=== PATIENT | male | born 1965 | race Caucasian/White ===

== ENCOUNTER 2020-02-29 15:07 | Outpatient (REF) | payer MEDICAID, SELFPAY | END 2020-02-29 15:08 | disposition home or self-care (01) | LOC: HO.LAB 15:07 | PROVIDERS: Visit Provider Internal Medicine | DX: Z20.822 Contact with and (suspected) exposure to COVID-19 (principal) | CPT/HCPCS: 36415; C9803; U0003 ==

== ENCOUNTER 2020-03-16 10:33 | Outpatient (REF) | payer MEDICAID, SELFPAY | END 2020-03-16 10:34 | disposition home or self-care (01) | LOC: HO.LAB 10:33 | PROVIDERS: Visit Provider Internal Medicine | DX: Z20.822 Contact with and (suspected) exposure to COVID-19 (principal) | CPT/HCPCS: 36415; C9803; U0003 ==

== ENCOUNTER 2020-05-31 14:20 | Outpatient (REF) | payer MEDICAID, SELFPAY | END 2020-05-31 14:21 | disposition home or self-care (01) | LOC: HO.LAB 14:20 | PROVIDERS: Visit Provider Internal Medicine | DX: Z20.822 Contact with and (suspected) exposure to COVID-19 (principal) | CPT/HCPCS: C9803; U0003; U0005 ==

== ENCOUNTER 2020-05-31 14:34 | Emergency (ER) | payer MEDICAID, SELFPAY ==
[2020-05-31 14:54] VITALS: BP 143/74; PULSE 56; RESP 18; TEMP 36.8; O2SAT 96; BMI 25.7
--- NOTE | 2020-05-31 15:54 | ED.EYEPROB ---
HPI - Eye Problem General Chief complaint: Eye Problems Stated complaint: pink eye Time Seen by Provider: 05/31/20 15:54 Source: patient Mode of arrival: ambulatory Limitations: no limitations History of Present Illness HPI Narrative: States woke up with red spot in the inner aspect of the left eye. No pain, discharge, swelling, rash. No vision changes. No headache or recent injury. No sensation of foreign body per MD chief complaint: eye redness Onset description: gradual (Woke up with it) Location: left eye Place: home Mechanism: none Associated symptoms: none Treatments Prior to Arrival: none Related Data Allergies Allergy/AdvReac Type Severity Reaction Status Date / Time No Known Allergies Allergy Unknown Verified 05/31/20 14:59 [No Known Allergies*] Review of Systems Review of Systems: Constitutional: No Weight loss, No Fever, No Chills, No Night Sweats, No Fatigue, No Malaise ENT/Mouth: No Hearing loss, No Ear Pain, No Nasal Congestion, No Sinus Pain, No Hoarseness, No sore throat, No Rhinorrhea, No Swallowing Difficulty Eyes: No Eye Pain, No Swelling, + Redness, No Foreign Body, No Discharge, No Vision Changes Cardiovascular: No Chest Pain, No SOB, No Dyspnea on Exertion, No Orthopnea, No Edema, No Palpitations Respiratory: No Cough, No Sputum, No Wheezing, No Smoke Exposure, No Dyspnea Gastrointestinal: No Nausea, No Vomiting, No Diarrhea, No Constipation, No abdominal Pain, No Hematochezia, No Melena Genitourinary: No Dysuria, No Urinary Frequency, No Hematuria, No Urinary Incontinence, No Urgency, No Flank Pain, No Urinary Flow Changes, No Hesitancy Musculoskeletal: No joint pain, No Myalgias, No Joint Swelling Skin: No Skin Lesions, No rash Neuro: No Weakness, No Numbness, No Paresthesias, No Loss of Consciousness, No Dizziness, No Headache Psych: No Social Issues Heme/Lymph: No Bruising, No Bleeding,No Lymphadenopathy Endocrine: No Polyuria, No Polydipsia, No Temperature Intolerance Yes all other systems are reviewed and are negative FOR[facility]LY [facility] Social History Social History Advance Directives: No Advance Directives Information Provided: Yes Physical Exam Vital Signs: Vital Signs: Last Vital Signs Temp 98.2 F 05/31/20 14:54 Pulse 56 05/31/20 14:54 Resp 18 05/31/20 14:54 BP 143/74 H 05/31/20 14:54 Pulse Ox 96 05/31/20 14:54 Body Mass Index 25.7 Reviewed Const: General: cooperative, healthy appearing, comfortable, no acute distress, well developed, alert and awake HENMT: Head: Yes normal to inspection Ears: hearing grossly normal bilaterally Eyes: General: appearance normal, both eyes and all related structures Visual Polanco: normal visual polanco by confrontation Eyelids: Yes eyelids normal Conjunctivae: conjunctival abnormal left subconjunctival hemorrhage (Very small area with clear small conjunctival hemorrhage with clear demarcation just proximal to the start of the cornea. No signs of trauma keep her reflux is normal lids.); Negative for conjunctival icterus, without chemosis, without injection, without discharge, without pallor and without pterygia Sclerae: sclerae normal Corneas: corneas normal Neck: Neck: Yes normal visual inspection Chest: Chest palpation & inspection: normal inspection of the chest and normal palpation of entire chest wall Resp: Effort & Inspection: normal respiratory effort, no audible wheezes, no cough and no respiratory distress Cardio: Jugular venous distension: no JVD Palpation: normal PMI Rate: regular rate Heart sounds: S1 normal heart sound present and S2 normal heart sound present Skin: General skin exam: no rashes or lesions noted, elasticity normal and turgor normal Wounds: no wounds Nails: normal Psych: Appearance: grossly normal and well kempt Discharge Plan Discharge Clinical Impression: Subconjunctival hemorrhage Patient Disposition: Home, Self-Care Instructions: Subconjunctival Hemorrhage (ED) Additional Instructions: The redness on the inner aspect of your eye is from very small blood vessel that ruptured. This appears scared but is very harmless. Your body will absorb the blood slowly over the next 1-2 weeks. Usually this occurs with you strain or cough or sneeze or with injury. There is no signs of injury, infection. This does not require any medications to be installed in the eye, whenever you do perform eye care make sure her hands are clean. Return if any pain, vision changes, headache, bleeding, fever, neck pain, abdominal pain, chest pain shortness of breath Otherwise follow up her primary care doctor Thank you Referrals: ED Physician,Generic [Emergency Provider] - 2 weeks
== END 2020-05-31 16:04 | disposition home or self-care (01) ==
PROVIDERS: Emergency Provider Emergency Medicine Emergency Medical Services
DX: H11.32 Conjunctival hemorrhage, left eye (principal); H10.022 Other mucopurulent conjunctivitis, left eye
CPT/HCPCS: 99283

== ENCOUNTER 2022-04-26 13:10 | Emergency (ER) | payer MEDICAID, SELFPAY ==
--- NOTE | ~2022-04-26 | CT_ITS ---
EXAMINATION: CT CHEST WITHOUT CONTRAST CLINICAL INFORMATION: Question dense consolidation, right flank pain COMPARISON: 517 2 2006, CT 04/26/2022 TECHNIQUE: Multidetector volumetric CT imaging of the chest was done. Axial MIP volume rendering provided. Sagittal and coronal reformatted images were obtained. This CT examination was performed using dose optimization techniques as appropriate, variously including the following: *Automated exposure control *Adjustment of mA and/or kV according to patient size (this includes techniques or standardized protocols for targeted exams where dose is matched to indication/reason for exam; i.e. extremities or head) *Use of iterative reconstruction technique DLP: 253 mGy-cm FINDINGS: The thoracic inlet demonstrating some mild nodes. Not pathologically enlarged. Mediastinum shows highly prominent adenopathy as well. Largest node appears precarinal. 1.2 cm short axis. This is a noncontrast study. I cannot exclude some hilar adenopathy. Imaging lung polanco. Right lung; Once again density seen at the left base. There is a differential here. This could be tumor or focal infiltrate.. Measures 2.1 x 1.3 cm Some probable pleural parenchymal chronic change in the upper lung zone posterior. 2 mm nodule on image 132 of series 5 4 mm nodule on image 197. This could be a bronchial plug. Small bronchial plug likely present on image 198 4 mm nodule on image 197. 3 mm nodule anterior on image 213 3 mm nodule on image 259 and a 6 mm nodule on image 256 Other minimal micronodules are noted. 7 mm nodule on image 317 3 mm nodule medial image 417 Left lung; Probable apical scarring. Probable small granuloma on image 113 7 mm pleural-based nodule on image 123 adjacent to the pleura. 3 mm nodule on image 218 The axillary regions are felt to be unremarkable. Partially visualized upper abdominal structures show probable cystic change associated with left kidney. Minimal coronary calcification. Review of the bone windows shows no suspicious finding. CT/CT chest wo IV con IMPRESSION: This exam is abnormal. Right basilar density is confirmed. There is a differential here. This may represent malignancy versus focal inflammatory change. Other nodules are noted throughout the lungs and again malignancy needs to be considered. There is also some mildly prominent central mediastinal and hilar adenopathy. Recommendation is PET/CT to further evaluate at this time. If PET/CT is not selected for recommendation is follow-up CT in 4-6 weeks after treatment for infiltrate for continued assessment .
--- NOTE | ~2022-04-26 | CT_ITS ---
EXAMINATION: CT ABDOMEN AND PELVIS WITHOUT CONTRAST CLINICAL INFORMATION: Right flank pain. History of renal stones COMPARISON: 04/29/2018 TECHNIQUE: Multidetector volumetric imaging was performed from the superior aspect of the liver through the pubic symphysis. Sagittal and coronal reformatted images were obtained on the technologist's workstation. This CT examination was performed using dose optimization techniques as appropriate, variously including the following: *Automated exposure control *Adjustment of mA and/or kV according to patient size (this includes techniques or standardized protocols for targeted exams where dose is matched to indication/reason for exam; i.e. extremities or head) *Use of iterative reconstruction technique DLP: 416 mGy-cm FINDINGS: Examination limited due to motion and noncontrast technique. LUNG BASES: There is dense consolidation abating the posterior pleura on the right measured 2.3 x 1.7 cm consider possibility of pneumonia versus small mass. Correlate clinically. LIVER, GALLBLADDER, AND BILIARY TREE: The liver is normal in size, shape, and attenuation. No focal hepatic lesion or biliary ductal dilatation is present. The gallbladder is unremarkable with no evidence of radiopaque gallstones, gallbladder wall thickening, or obvious pericholecystic inflammatory changes. PANCREAS: Unremarkable. SPLEEN: Unremarkable. ADRENAL GLANDS: Unremarkable. KIDNEYS AND URETERS: Right kidney is unremarkable. Left kidney revealed 3.4 x 3.4 cm cyst in the lower pole growing since previous study. BLADDER: Unremarkable. GASTROINTESTINAL TRACT: The small and large bowel are unremarkable. The appendix is unremarkable. ABDOMINAL WALL: No significant hernia is appreciated. LYMPH NODES: Normal. VASCULAR: Unremarkable. PELVIC VISCERA: There is questionable hydrocele visualized in the partially included scrotum scrotum. OSSEOUS STRUCTURES: Unremarkable. CT/CT abdomen pelvis wo IV con IMPRESSION: 1. Limited study due to noncontrast technique and motion. 2. Left renal cyst. 3. Right lung base dense parenchymal consolidation, correlate clinically. 4. Questionable hydrocele. Fleischner guidelines were followed.
[2022-04-26 13:25] VITALS: BP 145/77; PULSE 54; RESP 16; TEMP 36.4; O2SAT 98; BMI 24.1
--- NOTE | 2022-04-26 13:25 | ED.GENADULT ---
HPI - General Adult General Chief complaint: Urogenital-Male <LUCY Calzada - Last Filed: 04/26/22 13:26> Stated complaint: R flank pain <LUCY Calzada - Last Filed: 04/26/22 13:26> Time Seen by Provider: 04/26/22 14:19 <LUCY Calzada - Last Filed: 04/26/22 13:26> Source: patient <Kenneth Mcneil MD - Last Filed: 04/26/22 16:09> Mode of arrival: ambulatory <Kenneth Mcneil MD - Last Filed: 04/26/22 16:09> Limitations: no limitations <Kenneth Mcneil MD - Last Filed: 04/26/22 16:09> History of Present Illness HPI narrative: 57-year-old male came in for evaluation of right flank pain. Patient's symptoms started 2-3 weeks ago as right flank pain which is intermittent, sharp 5/10, no radiation, no other associated symptoms, pain now since yesterday's becoming more or less constant, no nausea, no vomiting, no fever, no dysuria, no frequency urination, no hematuria. Patient had similar presentation in the past when he had a kidney stones. Declined any trauma or injury to the abdomen or flank area. <Kenneth Mcneil MD - Last Filed: 04/26/22 16:09> Related Data Allergies/adverse reactions: Allergies Allergy/AdvReac Type Severity Reaction Status Date / Time No Known Allergies Allergy Unknown Verified 04/26/22 13:25 [No Known Allergies*] <LUCY Calzada - Last Filed: 04/26/22 13:26> Review of Systems Review of Systems: All other systems are reviewed and are negative Constitutional: Reports as per HPI and Reports no additional constitutional complaints Eyes: Reports as per HPI and Reports no additional eye complaints Reports system reviewed and no additional complaints, except as documented Cardiovascular: Reports as per HPI and Reports no additional cardiovascular complaints Respiratory: Reports as per HPI and Reports no additional respiratory complaints Gastrointestinal: Reports as per HPI and Reports no additional gastrointestinal complaints Genitourinary: Reports no additional female genitourinary complaints Musculoskeletal: Reports no additional musculoskeletal complaints Skin/Breast: Reports system reviewed and no additional complaints, except as docu Psychiatric: Reports no additional psychiatric complaints Endocrine: Reports no additional endocrine complaints Hematologic/Lymphatic: Reports no additional hematologic/lymphatic complaints Allergic/Immunologic: Reports no additional allergic/immunologic complaints Reports system reviewed and no additional complaints, except as documented and Reports Abnormal speech present <Kenneth Mcneil MD - Last Filed: 04/26/22 16:09> FORMERLY [facility] Social History Social History: Social History Alcohol intake: never Smoked in Last 30 Days: No Use of substances other than those prescribed or required for medical reasons: No Advance Directives: No Advance Directives Information Provided: Yes <LUCY Calzada - Last Filed: 04/26/22 13:26> Physical Exam ED Vital Signs: Vital Signs - 24 hr 04/26/22 13:25 04/26/22 15:18 Temperature 97.5 F 97.9 F Pulse Rate 54 53 Respiratory Rate 16 18 Blood Pressure 145/77 H 117/69 Pulse Oximetry 98 99 Oxygen Delivery Method Room Air Room Air BMI result Body Mass Index 24.1 <LUCY Calzada - Last Filed: 04/26/22 13:26> Vital Signs - 24 hr 04/26/22 13:25 04/26/22 15:18 Temperature 97.5 F 97.9 F Pulse Rate 54 53 Respiratory Rate 16 18 Blood Pressure 145/77 H 117/69 Pulse Oximetry 98 99 Oxygen Delivery Method Room Air Room Air BMI result Body Mass Index 24.1 Vital signs have been reviewed as appeared to be correct. Blood pressure normal. Heart rate normal. Respiration rate normal. Temperature normal. Oxygen saturation normal. <Kenneth Mcneil MD - Last Filed: 04/26/22 16:09> Vital Signs - 24 hr 04/26/22 13:25 04/26/22 15:18 Temperature 97.5 F 97.9 F Pulse Rate 54 53 Respiratory Rate 16 18 Blood Pressure 145/77 H 117/69 Pulse Oximetry 98 99 Oxygen Delivery Method Room Air Room Air BMI result Body Mass Index 24.1 <Emelina Gama MD - Last Filed: 04/26/22 18:52> Appearance: Alert. Oriented X3. No acute distress. Head: Normal external exam. Normocephalic. Atraumatic. No Spaulding signs noted. No raccoon eyes noted Eyes: PERRLA. EOMI. Conjunctiva and sclera normal. Eyelids normal. ENT: TM's Normal. Pharynx normal. Uvula midline. Moist mucous membranes. No trismus noted. No drooling noted. No muffled voice noted. Neck: Normal inspection. Neck supple. FROM. No adenopathy. Thyroid Normal. No meningeal signs. No neck mass noted. CVS: Normal heart rate and rhythm. Heart sound normal. No murmurs noted. Pulses normal throughout. Respiratory: No respiratory distress. Painless inspiration. Breath sounds normal. No wheezes/rales/rhonchi noted. Chest nontender. No accessory muscle usage noted or decreased air movement noted. Abdomen: Soft and nontender. Bowel sounds normal in all 4 quadrants. No distention noted. No organomegaly noted. No visible injury noted. Back: No CVA tenderness. Full range of motion noted. Skin: Skin warm and dry. Normal skin color. Normal skin turgor. No rashes/lesions/lacerations noted. Extremities: No lower extremity edema. Extremities exhibit normal range of motion. Extremities nontender. Neuro: Oriented X 3. Cranial nerve exam: II-XII are grossly intact No motor deficit. No sensory deficit. Reflexes normal. <Kenneth Mcneil MD - Last Filed: 04/26/22 16:09> Course Course Course Narrative: RME performed by Josephine Mckeon PA-C. Patient is a 57 year old male presenting to the emergency department with a history of kidney stone complaining of right flank pain. Labs, UA, CT ordered. Patient placed back in the waiting room pending room availability and results. <LUCY Calzada - Last Filed: 04/26/22 13:26> Reevaluation(s) Reevaluation #1: Sign-out to Dr. Gama to check CT result and dispo accordingly. <Kenneth Mcneil MD - Last Filed: 04/26/22 16:09> Time: 16:09 <Kenneth Mcneil MD - Last Filed: 04/26/22 16:09> Reevaluation #2: This patient was signed out to me for possible rule out renal colic, on the CT of abdomen pelvis there was a noted right lower lobe consolidation which I further evaluated with a CT of the chest and evidence to suggest possible lung mass and there is noted highly are adenopathy. I will discussed with the patient at bedside and he will be discharged home with analgesic regimen and strict instructions to follow-up with his primary care provider and also will provide him with a referral to pulmonology. <Emelina Gama MD - Last Filed: 04/26/22 18:52> Time: 18:43 <Emelina Gama MD - Last Filed: 04/26/22 18:52> Medical Decision Making Differential Diagnosis Differential Diagnoses: The differential diagnosis associated with the presentation includes (Flank pain, kidney infection, kidney stone, gallbladder disease, appendicitis.) <Kenneth Mcneil MD - Last Filed: 04/26/22 16:09> Lab Data MDM Lab Attestation statement: I reviewed the patient's lab results. <Kenneth Mcneil MD - Last Filed: 04/26/22 16:09> Result Diagrams: 04/26/22 14:26 04/26/22 14:26 <LUCY Calzada - Last Filed: 04/26/22 13:26> Labs: Lab Results 04/26/22 04/26/22 04/26/22 Range/Units 14:26 14:26 14:26 WBC 5.2 (4.8-10.8) X10*3/uL RBC 4.52 L (4.60-5.80) X10*6/uL Hgb 13.8 L (14.0-18.0) g/dl Hct 39.3 L (42.0-52.0) % MCV 86.9 (80.0-98.0) fL MCH 30.5 (27.0-33.0) pg MCHC 35.1 (31.0-36.0) g/dl RDW 11.8 (11.0-16.0) % Plt Count 168 (160-400) X10*3/uL MPV 9.9 (9.4-12.4) fL Immature Gran % (Auto) 0.2 (0.0-0.4) % Neut % (Auto) 65.0 (45-73) % Lymph % (Auto) 18.0 L (20-40) % [place] % (Auto) 13.3 H (2-11) % Eos % (Auto) 3.1 (0-4) % Baso % (Auto) 0.4 (0-2) % Lymph # (Auto) 0.9 L (1.2-4.9) X10*3/uL [place] # (Auto) 0.7 (0.1-1.2) X10*3/uL Eos # (Auto) 0.2 (0.0-0.4) X10*3/uL Baso # (Auto) 0.0 (0.0-0.2) X10*3/uL Abs Immat Gran (auto) 0.01 (0.00-0.03) X10*3/uL Absolute Neuts (auto) 3.4 (2.0-8.3) x10*3/uL Absolute Nucleated RBC 0.000 (0.0-0.012) X10*3/uL Nucleated RBC % (auto) 0.0 (0.0-0.2) /100WBC Sodium 143 (135-145) mmol/L Potassium 4.0 (3.3-5.1) mmol/L Chloride 109 H (96-108) mmol/L Carbon Dioxide 27 (22-29) mmol/L Anion Gap 11 L (12-20) BUN 16 (9-16) mg/dL Creatinine 0.83 (0.5-1.4) mg/dL Estim Creat Clear Calc 85.4 Estimated GFR > 60 Random Glucose 92 (60-115) mg/dL Calcium 8.7 (8.4-10.2) mg/dL Magnesium 1.8 (1.6-2.6) mg/dL Total Bilirubin 0.7 (0.0-1.0) mg/dL AST 20 (5-37) U/L ALT 21 (0-40) U/L Alkaline Phosphatase 71 (39-117) U/L Total Protein 6.7 (6.5-8.0) g/dL Albumin 3.7 (3.5-5.0) g/dL Urine Color Yellow Urine Appearance Clear Urine pH 6.5 (5.0-9.0) Ur Specific [place] 1.025 (1.005-1.025) Urine Protein Trace (Neg-Trace) mg/dL Urine Glucose (UA) Negative (Negative) mg/dL Urine Ketones Trace (Negative) mg/dL Urine Blood Negative (Negative) Urine Nitrite Negative (Negative) Ur Leukocyte Esterase Negative (Negative) <LUCY Calzada - Last Filed: 04/26/22 13:26> Lab Results 04/26/22 04/26/22 04/26/22 Range/Units 14:26 14:26 14:26 WBC 5.2 (4.8-10.8) X10*3/uL RBC 4.52 L (4.60-5.80) X10*6/uL Hgb 13.8 L (14.0-18.0) g/dl Hct 39.3 L (42.0-52.0) % MCV 86.9 (80.0-98.0) fL MCH 30.5 (27.0-33.0) pg MCHC 35.1 (31.0-36.0) g/dl RDW 11.8 (11.0-16.0) % Plt Count 168 (160-400) X10*3/uL MPV 9.9 (9.4-12.4) fL Immature Gran % (Auto) 0.2 (0.0-0.4) % Neut % (Auto) 65.0 (45-73) % Lymph % (Auto) 18.0 L (20-40) % [place] % (Auto) 13.3 H (2-11) % Eos % (Auto) 3.1 (0-4) % Baso % (Auto) 0.4 (0-2) % Lymph # (Auto) 0.9 L (1.2-4.9) X10*3/uL [place] # (Auto) 0.7 (0.1-1.2) X10*3/uL Eos # (Auto) 0.2 (0.0-0.4) X10*3/uL Baso # (Auto) 0.0 (0.0-0.2) X10*3/uL Abs Immat Gran (auto) 0.01 (0.00-0.03) X10*3/uL Absolute Neuts (auto) 3.4 (2.0-8.3) x10*3/uL Absolute Nucleated RBC 0.000 (0.0-0.012) X10*3/uL Nucleated RBC % (auto) 0.0 (0.0-0.2) /100WBC Sodium 143 (135-145) mmol/L Potassium 4.0 (3.3-5.1) mmol/L Chloride 109 H (96-108) mmol/L Carbon Dioxide 27 (22-29) mmol/L Anion Gap 11 L (12-20) BUN 16 (9-16) mg/dL Creatinine 0.83 (0.5-1.4) mg/dL Estim Creat Clear Calc 85.4 Estimated GFR > 60 Random Glucose 92 (60-115) mg/dL Calcium 8.7 (8.4-10.2) mg/dL Magnesium 1.8 (1.6-2.6) mg/dL Total Bilirubin 0.7 (0.0-1.0) mg/dL AST 20 (5-37) U/L ALT 21 (0-40) U/L Alkaline Phosphatase 71 (39-117) U/L Total Protein 6.7 (6.5-8.0) g/dL Albumin 3.7 (3.5-5.0) g/dL Urine Color Yellow Urine Appearance Clear Urine pH 6.5 (5.0-9.0) Ur Specific [place] 1.025 (1.005-1.025) Urine Protein Trace (Neg-Trace) mg/dL Urine Glucose (UA) Negative (Negative) mg/dL Urine Ketones Trace (Negative) mg/dL Urine Blood Negative (Negative) Urine Nitrite Negative (Negative) Ur Leukocyte Esterase Negative (Negative) <Kenneth Mcneil MD - Last Filed: 04/26/22 16:09> Lab Results 04/26/22 04/26/22 04/26/22 Range/Units 14:26 14:26 14:26 WBC 5.2 (4.8-10.8) X10*3/uL RBC 4.52 L (4.60-5.80) X10*6/uL Hgb 13.8 L (14.0-18.0) g/dl Hct 39.3 L (42.0-52.0) % MCV 86.9 (80.0-98.0) fL MCH 30.5 (27.0-33.0) pg MCHC 35.1 (31.0-36.0) g/dl RDW 11.8 (11.0-16.0) % Plt Count 168 (160-400) X10*3/uL MPV 9.9 (9.4-12.4) fL Immature Gran % (Auto) 0.2 (0.0-0.4) % Neut % (Auto) 65.0 (45-73) % Lymph % (Auto) 18.0 L (20-40) % [place] % (Auto) 13.3 H (2-11) % Eos % (Auto) 3.1 (0-4) % Baso % (Auto) 0.4 (0-2) % Lymph # (Auto) 0.9 L (1.2-4.9) X10*3/uL [place] # (Auto) 0.7 (0.1-1.2) X10*3/uL Eos # (Auto) 0.2 (0.0-0.4) X10*3/uL Baso # (Auto) 0.0 (0.0-0.2) X10*3/uL Abs Immat Gran (auto) 0.01 (0.00-0.03) X10*3/uL Absolute Neuts (auto) 3.4 (2.0-8.3) x10*3/uL Absolute Nucleated RBC 0.000 (0.0-0.012) X10*3/uL Nucleated RBC % (auto) 0.0 (0.0-0.2) /100WBC Sodium 143 (135-145) mmol/L Potassium 4.0 (3.3-5.1) mmol/L Chloride 109 H (96-108) mmol/L Carbon Dioxide 27 (22-29) mmol/L Anion Gap 11 L (12-20) BUN 16 (9-16) mg/dL Creatinine 0.83 (0.5-1.4) mg/dL Estim Creat Clear Calc 85.4 Estimated GFR > 60 Random Glucose 92 (60-115) mg/dL Calcium 8.7 (8.4-10.2) mg/dL Magnesium 1.8 (1.6-2.6) mg/dL Total Bilirubin 0.7 (0.0-1.0) mg/dL AST 20 (5-37) U/L ALT 21 (0-40) U/L Alkaline Phosphatase 71 (39-117) U/L Total Protein 6.7 (6.5-8.0) g/dL Albumin 3.7 (3.5-5.0) g/dL Urine Color Yellow Urine Appearance Clear Urine pH 6.5 (5.0-9.0) Ur Specific [place] 1.025 (1.005-1.025) Urine Protein Trace (Neg-Trace) mg/dL Urine Glucose (UA) Negative (Negative) mg/dL Urine Ketones Trace (Negative) mg/dL Urine Blood Negative (Negative) Urine Nitrite Negative (Negative) Ur Leukocyte Esterase Negative (Negative) <Emelina Gama MD - Last Filed: 04/26/22 18:52> Independent Interpretation I performed an independent interpretation of an: CT Scan <Kenneth Mcneil MD - Last Filed: 04/26/22 16:09> Discharge Plan Discharge Clinical Impression: Right lower lobe lung mass <LUCY Calzada - Last Filed: 04/26/22 13:26> Patient Disposition: Home, Self-Care <LUCY Calzada - Last Filed: 04/26/22 13:26> Instructions: Abdominal Pain (ED) <LUCY Calzada - Last Filed: 04/26/22 13:26> Additional Instructions: 1. You have a lung mass at the right lower lobe and the need to follow up with the referrals that are provided to you below. 2. Tylenol 1000 mg, orally, every 6 hours as needed for pain control. Do not exceed 4000 mg within 24 hours. 3. Ibuprofen 4 mg, orally with milk or food, every 6 hours as needed for pain control. 4. Follow-up with primary care provider in the next 1-2 days. Return to the ER for any worsening symptoms. <LUCY Calzada - Last Filed: 04/26/22 13:26> Referrals: [facility] [Primary Care Provider] - Margarito Montero MD [Physician] - (RLL ?lung mass with hilar adenopathy) <LUCY Calzada - Last Filed: 04/26/22 13:26>
[2022-04-26 14:32] LABS: MANUAL DIFF FLAG NO
[2022-04-26 14:40] LABS: Appearance Urine Clear; Color Urine Yellow; Glucose Urine UA Negative (Negative); Leukocyte Esterase Urine Negative (Negative); Nitrite Urine Negative (Negative); PH 6.5 (5.0-9.0); Specific Gravity - Urine 1.025 (1.005-1.025); Urine Blood Negative (Negative); Urine Ketones Trace mg/dL (Negative); Urine Protein Trace mg/dL (Neg-Trace)
[2022-04-26 14:43] LABS: Basophils Percent Auto 0.4 % (0-2); Eosinophils Absolute Auto 0.2 X10*3/uL (0.0-0.4); Eosinophils Percent Auto 3.1 % (0-4); Hematocrit 39.3 % (42.0-52.0); Hemoglobin 13.8 g/dl (14.0-18.0); Imm Gran Abs Auto 0.01 X10*3/uL (0.00-0.03); Imm Gran Pct Auto 0.2 % (0.0-0.4); Lymphocytes Absolute Auto 0.9 X10*3/uL (1.2-4.9); Mean Corpuscular HGB Conc 35.1 g/dl (31.0-36.0); Mean Corpuscular Hemoglobin 30.5 pg (27.0-33.0); Mean Corpuscular Volume 86.9 fL (80.0-98.0); Mean Platelet Volume 9.9 fL (9.4-12.4); Monocytes Absolute Auto 0.7 X10*3/uL (0.1-1.2); Monocytes Percent Auto 13.3 % (2-11); Neutrophils Absolute Auto 3.4 x10*3/uL (2.0-8.3); Platelet Count 168 X10*3/uL (160-400); Red Blood Count 4.52 X10*6/uL (4.60-5.80); Red Cell Distribution Width 11.8 % (11.0-16.0); White Blood Count 5.2 X10*3/uL (4.8-10.8)
[2022-04-26 14:50] LABS: Alanine Aminotransferase 21 U/L (0-40); Albumin Level 3.7 g/dL (3.5-5.0); Alkaline Phosphatase 71 U/L (39-117); Anion Gap 11 (12-20); Aspartate Amino Transferase 20 U/L (5-37); Bilirubin Total 0.7 mg/dL (0.0-1.0); Blood Urea Nitrogen 16 mg/dL (9-16); Calcium 8.7 mg/dL (8.4-10.2); Carbon Dioxide 27 mmol/L (22-29); Chloride 109 mmol/L (96-108); Creatinine Clr Calc Pharmacy 85.4; Estimated Glomerular Filt Rate > 60; Glucose Random 92 mg/dL (60-115); Magnesium 1.8 mg/dL (1.6-2.6); Sodium 143 mmol/L (135-145); Total Protein 6.7 g/dL (6.5-8.0)
[2022-04-26 15:18] VITALS: BP 117/69; PULSE 53; RESP 18; TEMP 36.6; O2SAT 99
[2022-04-26] MEDS: oxyCODONE HCl Immed Release 5 MG TABLET PO (19:36)
== END 2022-04-26 19:41 | disposition home or self-care (01) ==
PROVIDERS: Physician Assistant Medical; Emergency Provider Student in an Organized Health Care Education/Training Program
DX: R91.8 Other nonspecific abnormal finding of lung field (principal); R10.9 Unspecified abdominal pain; N28.1 Cyst of kidney, acquired
CPT/HCPCS: 36415; 71250; 74176; 80053; 81003; 83735; 85025; 99284

== ENCOUNTER 2022-05-05 09:03 | Outpatient (REF) | payer MEDICAID, SELFPAY ==
[2022-05-05 10:02] LABS: MANUAL DIFF FLAG NO
[2022-05-05 10:36] LABS: Basophils Percent Auto 0.6 % (0-2); Eosinophils Absolute Auto 0.2 X10*3/uL (0.0-0.4); Hematocrit 41.4 % (42.0-52.0); Hemoglobin 14.4 g/dl (14.0-18.0); Imm Gran Abs Auto 0.01 X10*3/uL (0.00-0.03); Imm Gran Pct Auto 0.2 % (0.0-0.4); Lymphocytes Percent Auto 21.4 % (20-40); Mean Corpuscular HGB Conc 34.8 g/dl (31.0-36.0); Mean Corpuscular Hemoglobin 30.4 pg (27.0-33.0); Mean Corpuscular Volume 87.3 fL (80.0-98.0); Mean Platelet Volume 10.4 fL (9.4-12.4); Monocytes Absolute Auto 0.4 X10*3/uL (0.1-1.2); Monocytes Percent Auto 8.4 % (2-11); Neutrophils Percent Auto 64.4 % (45-73); Platelet Count 201 X10*3/uL (160-400); Red Blood Count 4.74 X10*6/uL (4.60-5.80); Red Cell Distribution Width 11.7 % (11.0-16.0); White Blood Count 4.6 X10*3/uL (4.8-10.8)
[2022-05-05 10:56] LABS: D Dimer High Sensitivity 197 NG/ML
[2022-05-05 11:34] LABS: Anion Gap 11 (12-20); Blood Urea Nitrogen 19 mg/dL (9-16); Calcium 9.3 mg/dL (8.4-10.2); Carbon Dioxide 28 mmol/L (22-29); Chloride 108 mmol/L (96-108); Estimated Glomerular Filt Rate > 60; Glucose Random 113 mg/dL (60-115); Sodium 143 mmol/L (135-145)
[2022-05-05 11:40] LABS: Erythrocyte Sedimentation Rate 10 MM/HR (0-15)
[2022-05-10 05:20] LABS: Angiotensin Converting Enzyme 54 U/L (9-67)
[2022-05-11 10:04] LABS: Anti Nuclear Antibody Screen NEGATIVE (NEGATIVE)
== END 2022-05-05 09:04 | disposition home or self-care (01) ==
LOC: HO.LAB 09:03
PROVIDERS: Visit Provider Hospitalist
DX: R91.8 Other nonspecific abnormal finding of lung field (principal); R07.81 Pleurodynia
CPT/HCPCS: 36415; 80048; 82164; 85025; 85379; 85652; 86038; 86039; 99202

== ENCOUNTER → 2022-06-30 14:21 | Outpatient (BNVA) | payer MEDICAID, SELFPAY | PROVIDERS: PCP Family Medicine; Visit Provider Hospitalist | DX: R91.8 Other nonspecific abnormal finding of lung field (principal); R07.81 Pleurodynia | CPT/HCPCS: 99212 ==

== ENCOUNTER 2022-12-02 12:02 | Outpatient (REF) | payer MEDICAID, SELFPAY ==
--- NOTE | ~2022-12-02 | XR_ITS ---
EXAMINATION: XR KNEE, RIGHT CLINICAL INFORMATION: Chronic pain in the right knee COMPARISON: 04/13/2015 TECHNIQUE: Three views of the right knee. FINDINGS: There is significant and progressive narrowing of the medial compartment of right knee joint, more pronounced on weightbearing view, with varus deformity of the knee. There is minimal spurring seen marginally and there is patellar spurring also. There is no joint effusion, no erosions or fractures. XR/XR knee RT 3V IMPRESSION: Changes of osteoarthritis in the right knee joint in progress since previous study.
[2022-12-02 13:43] LABS: MANUAL DIFF FLAG NO
[2022-12-02 13:50] LABS: Basophils Percent Auto 0.7 % (0-2); Eosinophils Absolute Auto 0.2 X10*3/uL (0.0-0.4); Eosinophils Percent Auto 5.4 % (0-4); Hematocrit 40.1 % (42.0-52.0); Hemoglobin 14.2 g/dl (14.0-18.0); Imm Gran Abs Auto 0.02 X10*3/uL (0.00-0.03); Imm Gran Pct Auto 0.5 % (0.0-0.4); Lymphocytes Percent Auto 23.1 % (20-40); Mean Corpuscular HGB Conc 35.4 g/dl (31.0-36.0); Mean Corpuscular Hemoglobin 31.1 pg (27.0-33.0); Mean Corpuscular Volume 87.9 fL (80.0-98.0); Monocytes Absolute Auto 0.4 X10*3/uL (0.1-1.2); Neutrophils Absolute Auto 2.7 x10*3/uL (2.0-8.3); Neutrophils Percent Auto 61.3 % (45-73); Platelet Count 174 X10*3/uL (160-400); Red Blood Count 4.56 X10*6/uL (4.60-5.80); Red Cell Distribution Width 11.9 % (11.0-16.0); White Blood Count 4.4 X10*3/uL (4.8-10.8)
[2022-12-02 13:57] LABS: Estimated Average Glucose 103 mg/dL; Hemoglobin A1c % 5.2 % (<6.0)
[2022-12-02 14:13] LABS: Cholesterol 221 mg/dL (<200); HDL Cholesterol 41 mg/dL (>40); LDL Cholesterol Calculated 109 mg/dL (<100); Triglycerides 355 mg/dL (<150)
[2022-12-02 14:30] LABS: Alanine Aminotransferase 32 U/L (0-40); Alkaline Phosphatase 68 U/L (39-117); Anion Gap 14 (12-20); Aspartate Amino Transferase 25 U/L (5-37); Bilirubin Total 0.5 mg/dL (0.0-1.0); Blood Urea Nitrogen 18 mg/dL (9-16); Calcium 9.6 mg/dL (8.4-10.2); Carbon Dioxide 22 mmol/L (22-29); Chloride 109 mmol/L (96-108); Estimated Glomerular Filt Rate > 60; Ferritin 112 ng/mL (20-250); Glucose Random 117 mg/dL (60-115); Iron 79 mcg/dL (45-160); Percent Iron Saturation 33 % (15-50); Potassium 3.9 mmol/L (3.3-5.1); Sodium 141 mmol/L (135-145); TSH reflex Free T4 1.23 uIU/mL (0.32-4.0); Total Iron Binding Capacity 237 mcg/dL (228-428); Total Protein 7.5 g/dL (6.5-8.0); Unsaturated Iron Binding 158 ug/dL; Uric Acid 4.6 mg/dL (3.4-7.0)
[2022-12-02 14:38] LABS: Folate 15.8 ng/mL (> or = 4.0); Vitamin B12 1027 pg/mL (200-900)
[2022-12-02 16:56] LABS: CT PCR NOT DETECTED (Not Detect.); NG PCR NOT DETECTED (Not Detect.)
[2022-12-02 16:59] LABS: Reflex LDLD? No
[2022-12-03 07:56] LABS: Syphilis Screen Nonreactive (Nonreactive)
[2022-12-03 08:07] LABS: HBS Num1 0.04 mIU/mL (0-7.99); HBc Num1 0.19 S/CO (0.00-0.79); HBsAGNum1 0.34 S/CO (0.00-0.99); HIV AB/AG Nonreactive (Nonreactive); HIV Num 1 0.06 S/CO (0.00-0.99); Hepatitis B Core Antibody Nonreactive (Nonreactive); Hepatitis B Surface Antigen Negative (Negative); ~HepC Num1 0.08 S/CO (0.00-0.79); ~Hepatitis B Surface Antibody NONREACTIVE (Nonreactive); ~Hepatitis C Antibody Nonreactive (Nonreactive)
== END 2022-12-02 12:03 | disposition home or self-care (01) ==
LOC: HO.HHCL 12:02
PROVIDERS: Visit Provider Family Medicine
DX: M25.561 Pain in right knee (principal); M25.521 Pain in right elbow; G89.29 Other chronic pain; D64.9 Anemia, unspecified; Z13.1 Encounter for screening for diabetes mellitus; Z13.220 Encounter for screening for lipoid disorders; Z11.3 Encounter for screening for infections with a predominantly sexual mode of transmission
CPT/HCPCS: 0353U; 73562; 80053; 80061; 82607; 82728; 82746; 83036; 83540; 84443; 84550; 85025; 86704; 86706; 86780; 86803; 87340; 87389

== ENCOUNTER 2022-12-09 14:19 | Outpatient (AMB) | payer MEDICAID, SELFPAY ==
--- NOTE | 2022-12-09 14:27 | A.OFFVIS_ITS ---
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 Some pleuritic component. Also worsen with movement. He was evaluated in the ER. Denied any fevers or chills. Denies any productive cough. In view of his ongoing symptoms he did undergo a CT scan of the chest demonstrating a nodular area on the right lower lobe and also pulmonary nodule in the left upper lobe area. The right lower lobe nodular density greater than a cm in size and was peripheral based abutting the pleura. Indeed discontinue resulting some pleuritic discomfort. We did talk about differential including a small infectious process versus an inflammatory condition. Malignancy is also in the differential. Does not appear that he has any blood borne infections. Will have patient undergo blood work just to make sure that he does not have a risk of blood test to make sure that this is not a pulmonary infarct in the meantime will start him antibiotics. Will plan to repeat the CT scan in 6 weeks. If the nodular density still there then further diagnostic interventions will be required. 06/30/2022 the patient is here for pulmon niurka follow-up visit. The patient still continues to have some right-sided discomfort although better from before. He did complete a course of doxycycline. The patient does have a nodular density that is concerning in the right hemithorax. We again looked at the CT scan together. He was supposed to have a CT scan of the chest prior to this visit but has not been scheduled as of yet. Therefore I will give him additional medicine since he is still having some discomfort in that area with the hope that we can decrease the inflammation in that area and he can have a repeat CT scan showing poor improvement in that area. If that nodular density still there then further diagnostic interventions will be required. Some hopeful that does not the case. 12/09/2022 the patient is here for a pulmonary follow-up visit. He still complains of cough. The cough is moderate severity. Typically nonproductive although sometimes he does bring up phlegm. He is not looked at it. He denies any more chest discomfort. Denies any shortness of breath. He has not been using any of the inhalers. Also unfortunately did not have his CT scan. He was scheduled but the patient no showed. We did again review the CT scan demonstrating a significant masslike density in the right lower lobe and I am concerned about the finding. I am hopeful that is just an infectious process. In view of this ongoing cough will go ahead and treating with antibiotics again just in case it still infectious process. The patient will be traveling soon out of [facility]. Although he knows that when he comes back and is to have the CT scan as soon as possible. Will go ahead and reorder it for him. Patient has also dealing with significant knee pain. He will have to have additional imaging for that as well. The patient will be treated for his cough and at this point the patient is not adherent to any respiratory medications so we will hold off on any respiratory inhalers at this time. [facility] Medical History (Updated 12/09/22 @ 22:03 by Margarito Montero MD) Chronic rhinitis Chronic cough Pleuritic chest pain Pulmonary nodules Social History (Updated 05/05/22 @ 09:17 by LAWANDA Ovalle) Alcohol intake: never Patient Tobacco Use Status: Never used Tobacco Review of Systems Const Denies fatigue and Denies fever(s) Eyes Reports no additional complaints ENT Denies dizziness Card Denies chest pain Resp Denies chest congestion, Reports cough and Denies wheezing GI Reports no additional complaints Musc Reports back pain Skin/Breast Denies rash Neuro Reports no additional complaints and Denies dizziness Endo Denies fatigue Wayne/Lymph Denies easy bleeding, Denies easy bruising and Denies lymphadenopathy Aller/Immun Denies wheezing Physical Exam Vital Signs: Last Vital Signs Pulse 53 12/09/22 14:28 Pulse Ox 98 12/09/22 14:28 Oxygen Delivery Method Room Air 12/09/22 14:28 BMI result Body Mass Index 24.4 Reviewed Const General: cooperative, healthy appearing, comfortable, no acute distress, well developed, alert and awake HEENT Head: Yes normal to inspection Ears: TM abnormal retracted bilateral General nose exam: Abnormal mucous membranes and turbinates present erythematous Eyes Sclerae: sclerae normal Corneas: corneas normal Neck Neck: Yes normal visual inspection Chest Chest palpation & inspection: normal inspection of the chest Resp Effort & Inspection: normal respiratory effort, no audible wheezes, no cough and no respiratory distress Auscultation: clear to auscultation bilaterally Cardio Rate: regular rate Heart sounds: S1 normal heart sound present and S2 normal heart sound present GI Palpation (GI): Soft to palpation General: No CVA tenderness Back/Spine/Pelvis Back: No CVA tenderness Skin General skin exam: no rashes or lesions noted, elasticity normal and turgor normal Wounds: no wounds Nails: normal Extrem General: Yes normal to inspection Psych Appearance: grossly normal and well kempt Assessment & Plan Assessment & Plan (1) Pulmonary nodules: Code(s): R91.8 - Other nonspecific abnormal finding of lung field (2) Pleuritic chest pain: Comment: resolved Code(s): R07.81 - Pleurodynia (3) Chronic cough: Code(s): R05.3 - Chronic cough (4) Chronic rhinitis: Code(s): J31.0 - Chronic rhinitis Plan CT chest stop Symbicort Tessalon pearls as needed start Doxycycline Fluticasone nasal spray F/U 2-3 months Orders: Orders CT chest wo IV con Today R91.8 - Other nonspecific abnormal finding of lung field Medications: New fluticasone propionate 50 mcg/actuation 2 sprays intranasal DAILY 30 days 15.8 mL 11RF J31.0 - Chronic rhinitis doxycycline monohydrate 100 mg PO BID 14 days 28 tabs 0RF Refilled benzonatate 200 mg PO BID 30 days PRN 60 caps 6RF cough Coding Level of Care Code Est Pt Level 4 (88415) Diagnoses Pulmonary nodules R91.8 Pleuritic chest pain R07.81 Chronic cough R05.3 Chronic rhinitis J31.0 Time Spent (min) 17
[2022-12-09 14:28] VITALS: PULSE 53; O2SAT 98; BMI 24.4
== END 2022-12-09 14:47 | disposition home or self-care (01) ==
PROVIDERS: Visit Provider Hospitalist
DX: R91.8 Other nonspecific abnormal finding of lung field (principal); R07.81 Pleurodynia; R05.3 Chronic cough; J31.0 Chronic rhinitis
CPT/HCPCS: 99214

== ENCOUNTER → 2022-12-09 14:19 | Outpatient (BNVA) | payer MEDICAID, SELFPAY | PROVIDERS: Visit Provider Hospitalist | DX: R91.8 Other nonspecific abnormal finding of lung field (principal); R07.81 Pleurodynia; R05.3 Chronic cough; J31.0 Chronic rhinitis | CPT/HCPCS: 99212 ==

== ENCOUNTER 2023-01-12 15:04 | Outpatient (REF) | payer MEDICAID, SELFPAY ==
--- NOTE | ~2023-01-12 | CT_ITS ---
EXAMINATION: CT CHEST WITHOUT CONTRAST CLINICAL INFORMATION: Follow-up multiple lung nodules COMPARISON: 04/26/2022 TECHNIQUE: Multidetector volumetric CT imaging of the chest was done. Axial MIP volume rendering provided. Sagittal and coronal reformatted images were obtained. This CT examination was performed using dose optimization techniques as appropriate, variously including the following: *Automated exposure control *Adjustment of mA and/or kV according to patient size (this includes techniques or standardized protocols for targeted exams where dose is matched to indication/reason for exam; i.e. extremities or head) *Use of iterative reconstruction technique DLP: 155 mGy-cm FINDINGS: RESIDENT CARE COORDINATOR: There is mild dextroscoliosis of thoracic spine LUNGS: There is stable fissure based left upper lobe 0.7 cm triangular-shaped density. There is fissure based left lower lobe 0.3 cm nodule seen on image 234 series 5. There is left upper lobe 0.2 cm nodule seen on image 244, and 0.2 cm nodule in the right upper lobe seen on image 254. There is fissure based right middle lobe 0.3 cm nodule seen on image 287. There is another stable 0.3 cm nodule in the right lower lobe seen on image 355. There are no new lung nodules identified. MEDIASTINUM: There is no mediastinal or hilar lymphadenopathy. Shotty lymph nodes seen in the mediastinum with known pathological size. Aorta is not dilated and there is no pericardial effusion. Thyroid gland is normal. CORONARY ARTERY CALCIFICATION: Mild coronary artery calcifications present. PLEURA: There is no pleural effusion. No pleural mass or thickening. AXILLA: No lymphadenopathy. UPPER ABDOMEN: There is stable 3.7 cm cyst in the lower pole of left kidney, partially visualized. OSSEOUS STRUCTURES: Unremarkable. CT/CT chest wo IV con IMPRESSION: 1. Stable benign-appearing lung nodules bilaterally. 2. Left renal cyst. Fleischner guidelines were followed.
== END 2023-01-12 15:05 | disposition home or self-care (01) ==
LOC: HO.CT 15:04
PROVIDERS: PCP Family Medicine; Visit Provider Hospitalist
DX: R91.8 Other nonspecific abnormal finding of lung field (principal)
CPT/HCPCS: 71250

== ENCOUNTER 2023-01-14 13:58 | Outpatient (AMB) | payer MEDICAID, SELFPAY ==
--- NOTE | 2023-01-14 14:16 | A.OFFVIS_ITS ---
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 Not able to take motrin due to his acid reflux. lateral aspect with quick movement pain increases. laying down standing. His knee will give out on here. no relief when talking Tylenol/ibuprofen. Allergies No Known Allergies [No Known Allergies*] Allergy (Unknown, Verified 12/09/22 14:29) HPI CLIENT ONBOARDING ANALYST-Chronic R knee pain HPI Details 57-year-old male who presents to the off ice today for evaluation of chronic right knee pain s/p hitting his knee on the dashboard, about 3 years ago. He states he has pain in the lateral aspect of his right knee with quick movements. His pain is aggravated with laying down, standing, and stair use. He also c/o his knee giving out. He finds no relief with Tylenol or ibuprofen. He is unable to take Motrin due to acid reflux. [facility] Medical History (Updated 01/14/23 @ 14:55 by Sanchez Melendez PA-C) Chronic rhinitis Chronic cough Pleuritic chest pain Pulmonary nodules Social History (Updated 01/14/23 @ 14:21 by Ericka Bernstein Joanne) Alcohol intake: never Patient Tobacco Use Status: Never used Tobacco Current occupational status: unemployed Review of Systems Const All systems reviewed & are unremarkable except as noted in HPI and below Physical Exam Vital Signs: BMI result Body Mass Index 24.3 Const General: cooperative, healthy appearing, comfortable, no acute distress, well developed and alert Orientation/consciousness: patient oriented x3 HEENT Head: Yes normal to inspection, Yes normocephalic and Yes atraumatic Eyes General: appearance normal, both eyes and all related structures Resp Effort & Inspection: normal respiratory effort and able to speak in complete sentences Cardio Rate: regular rate Peripheral pulses: Peripheral pulses 2+ throughout GI Palpation (GI): Soft to palpation Skin Lesions: no lesions Rashes: no rashes Neuro General: patient oriented x3 Extrem Other: Right knee: Skin intact, no erythema or joint effusion. Tenderness along the lateral joint line. Full ROM with crepitus. Negative Emil?s. No ligamentous laxity. He does have a varus deformity. NVI. Results Reviewed Results Reviewed: xrays of the right knee obtained on 12/02/22 show medial joint collapse Assessment & Plan Assessment & Plan (1) Osteoarthritis of right knee: Code(s): M17.11 - Unilateral primary osteoarthritis, right knee Qualifiers: Osteoarthritis type: primary Qualified Code(s): M17.11 - Unilateral primary osteoarthritis, right knee Plan We discussed options which include PT, NSAIDs and injections. The patient will defer on the injection today and proceed with PT and NSAIDs. He was also placed in a Janumet knee brace in the office today. If symptoms persist, the patient will contact me for an injection, otherwise, PRN. Orders: Orders PT Evaluation and Treatment Today M17.11 - Unilateral primary osteoarthritis, right knee Patient Instructions: Scribed for Sanchez Melendez PA-C, by Joo Dickinson lead medical technologist, on 01/14/2023 at 2:00 PM EST. I, Sanchez Melendez PA-C, have personally reviewed and agree with the information entered by the scribe. Coding Level of Care Code New Pt Level 3 (97524) Diagnoses Primary osteoarthritis of right knee M17.11 Osteoarthritis type: primary
[2023-01-14 14:17] VITALS: BMI 24.3
== END 2023-01-14 14:57 | disposition home or self-care (01) ==
PROVIDERS: Visit Provider Physician Assistant
DX: M17.11 Unilateral primary osteoarthritis, right knee (principal)
CPT/HCPCS: 99203

== ENCOUNTER → 2023-01-14 13:58 | Outpatient (BNVA) | payer MEDICAID, SELFPAY | PROVIDERS: Visit Provider Physician Assistant | DX: M17.11 Unilateral primary osteoarthritis, right knee (principal) | CPT/HCPCS: 99212 ==

== ENCOUNTER 2023-03-06 12:25 | Outpatient (AMB) | payer MEDICAID, SELFPAY ==
--- NOTE | 2023-03-06 12:40 | A.OFFVIS_ITS ---
Intake Vital Signs 03/06/23 12:44 Height 5 ft 5 in Weight 158 lb 11.725 oz BMI 26.4 BP 141/82 H Blood Pressure Location Lt brachial Position Sitting Pulse 49 L Intake Visit Reasons: Colonoscopy Screening Intake Note: Vinh presents in the office as a colonoscopy screening. CC: No concerns - never had a colonoscopy. Allergies No Known Allergies [No Known Allergies*] Allergy (Unknown, Verified 03/06/23 12:44) Medication List - Last Reconciled 03/06/23 by MATTHEW Burciaga-BRAXTON acetaminophen (Tylenol) 325 mg PO QID PRN benzonatate 200 mg PO BID PRN 30 days budesonide-formoterol 160-4.5 mcg/actuation (Symbicort) 2 puffs inhalation BID 30 days fluticasone propionate 50 mcg/actuation 2 sprays intranasal DAILY 30 days omeprazole 10 mg PO DAILY PRN HPI Colonoscopy Screening HPI Details 57 year old? male here today for pre col onoscopy screening.? Patient reports that he is moving his bowels without any issues. Occasional acid reflux which he was given script for omeprazole. Takes only when needs it. Patient admits to symptoms of acid reflux with certain food. Usually with something spicy or fried. Patient was sent to us by his PCP.? This is his first colonoscopy screening.? Patient denies any gastrointestinal symptoms in the past or at present.? Denies any personal or family history of gastrointestinal disease, colon polyps, or cancer.? Denies history of difficulty with sedation or anesthesia in the past.? Negative for history of sleep apnea.? Denies any history of cardiac, renal or hepatic disease.?? No history of infectious? diseases like hepatitis A, B, C, HIV or tuberculosis.? Patient is not on any anticoagulation therapy. [facility] Medical History Chronic rhinitis Chronic cough Pleuritic chest pain Pulmonary nodules Social History Alcohol intake: never Patient Tobacco Use Status: Never used Tobacco Current occupational status: unemployed Review of Systems Const Denies weight gain and Denies weight loss ENT Reports no additional complaints, Denies dysphagia and Denies odynophagia Card Reports no additional complaints Resp Reports no additional complaints GI Denies abdominal pain, Denies belching, Denies melena, Denies bloating, Denies change in bowel habits, Denies dysphagia, Denies excessive flatus, Denies dyspepsia, Reports heartburn (Occasional), Denies diarrhea, Denies loose stools, Denies nausea, Denies odynophagia and Denies vomiting Reports no additional complaints Musc Reports no additional complaints Neuro Reports no additional complaints Psych Reports no additional complaints Endo Reports no additional complaints Physical Exam Vital Signs: BMI result Body Mass Index 26.4 Const General: healthy appearing, no acute distress and well developed Nutritional Appearance: well nourished Orientation/consciousness: patient oriented x3 Resp Effort & Inspection: normal respiratory effort, able to speak in complete sentences, no tracheal deviation and symmetric chest movement Auscultation: clear to auscultation bilaterally Cardio Rate: regular rate GI Inspection: Yes normal to inspection and No distended Palpation (GI): Soft to palpation, not firm, nontender and No hepatosplenomegaly present Auscultation: normal bowel sounds General: Yes no CVA tenderness Back/Spine/Pelvis Back: no CVA tenderness Skin General skin exam: elasticity normal, turgor normal and dry skin Neuro General: patient oriented x3 Psych Appearance: grossly normal Mental Status: mental status grossly normal Assessment & Plan Assessment & Plan (1) Screen for colon cancer: Code(s): Z12.11 - Encounter for screening for malignant neoplasm of colon (2) Mild acid reflux: Code(s): K21.9 - Gastro-esophageal reflux disease without esophagitis Plan Patient denies any GI, cardiac or respiratory symptoms.? Patient does admit to occasional acid reflux was given by PCP script for omeprazole. Only uses when he has the symptoms. Most of the time symptoms related to the food that he eats. Discussed with patient avoiding dietary triggers in late night snacking. Staying upright for minimum 3 hours after meals discussed with patient. Will hold off on sending patient for upper endoscopy at this time as patient has infrequent symptoms at this time. Patient denies any dyspepsia, dysphagia or odynophagia. Denies any issues with anesthesia in the past.? Denies any history of sleep apnea.? No history infectious diseases in the past or present.? Not on any anticoagulation therapy.? No family or personal history of colon cancer or polyps.? Patient denies melena, hematochezia, unintentional weight loss or ribbon like stools.? Discussed at length the pre-procedure,? prep, diet & medications as well as what to expect prior, during and after the procedure.?? Stressed the importance of good bowel prep. ?Recommended the use of Vaseline or Calmoseptine OTC & baby wipes with bowel movements to promote comfort.? ?Patient verbalizes understanding and agrees to plan of care.? He was given the opportunity to ask questions and all questions answered.? We will see him after the procedure.? Medications: New bisacodyl (Dulcolax (bisacodyl)) take 4 tabs at noon the day before your colonoscopy 20 mg (4 x 5 mg) PO ONCE 1 day 4 tabs 0RF Z12.11 - Encounter for screening for malignant neoplasm of colon polyethylene glycol 3350 (Miralax) As directed by gastroenterology department at [facility] 238 grams PO ONCE 238 grams 0RF Z12.11 - Encounter for screening for malignant neoplasm of colon Coding Level of Care Code New Pt Level 3 (70896) Diagnoses Screen for colon cancer Z12.11 Mild acid reflux K21.9 Time Spent (min) 40 Comment 30 minutes spent with patient and additional 10 minutes spent reviewing his records
[2023-03-06 12:44] VITALS: BP 141/82; PULSE 49; BMI 26.4
== END 2023-03-06 13:09 | disposition home or self-care (01) ==
PROVIDERS: PCP Family Medicine; Visit Provider Nurse Practitioner Family
DX: Z12.11 Encounter for screening for malignant neoplasm of colon (principal); K21.9 Gastro-esophageal reflux disease without esophagitis; Z01.818 Encounter for other preprocedural examination
CPT/HCPCS: 99203

== ENCOUNTER → 2023-03-06 12:25 | Outpatient (BNVA) | payer MEDICAID, SELFPAY | PROVIDERS: PCP Family Medicine; Visit Provider Nurse Practitioner Family | DX: Z12.11 Encounter for screening for malignant neoplasm of colon (principal); K21.9 Gastro-esophageal reflux disease without esophagitis | CPT/HCPCS: 99212 ==

== ENCOUNTER 2023-07-07 17:54 | Emergency (ER) | payer MEDICAID, SELFPAY ==
[2023-07-07 18:36] VITALS: BP 131/82; PULSE 55; RESP 16; TEMP 37; O2SAT 96; BMI 23.9
[2023-07-07 19:02] LABS: MANUAL DIFF FLAG NO
[2023-07-07 19:11] LABS: Basophils Percent Auto 0.6 % (0-2); Eosinophils Absolute Auto 0.3 X10*3/uL (0.0-0.4); Eosinophils Percent Auto 5.7 % (0-4); Hematocrit 38.1 % (42.0-52.0); Hemoglobin 13.8 g/dl (14.0-18.0); Imm Gran Abs Auto 0.01 X10*3/uL (0.00-0.03); Imm Gran Pct Auto 0.2 % (0.0-0.4); Lymphocytes Absolute Auto 1.3 X10*3/uL (1.2-4.9); Lymphocytes Percent Auto 25.9 % (20-40); Mean Corpuscular HGB Conc 36.2 g/dl (31.0-36.0); Mean Corpuscular Hemoglobin 31.3 pg (27.0-33.0); Mean Corpuscular Volume 86.4 fL (80.0-98.0); Mean Platelet Volume 10.4 fL (9.4-12.4); Monocytes Absolute Auto 0.6 X10*3/uL (0.1-1.2); Monocytes Percent Auto 11.4 % (2-11); Neutrophils Absolute Auto 2.8 x10*3/uL (2.0-8.3); Neutrophils Percent Auto 56.2 % (45-73); Platelet Count 154 X10*3/uL (160-400); Red Blood Count 4.41 X10*6/uL (4.60-5.80); Red Cell Distribution Width 11.9 % (11.0-16.0); White Blood Count 4.9 X10*3/uL (4.8-10.8)
[2023-07-07 19:28] LABS: Alanine Aminotransferase 27 U/L (0-40); Alkaline Phosphatase 67 U/L (39-117); Anion Gap 14 (12-20); Aspartate Amino Transferase 25 U/L (5-37); Bilirubin Total 0.5 mg/dL (0.0-1.0); Blood Urea Nitrogen 19 mg/dL (9-16); Calcium 9.6 mg/dL (8.4-10.2); Carbon Dioxide 24 mmol/L (22-29); Chloride 109 mmol/L (96-108); Creatinine Clr Calc Pharmacy 83.3; Estimated Glomerular Filt Rate > 60; Glucose Random 92 mg/dL (60-115); Lipase 31 U/L (8-78); Magnesium 1.8 mg/dL (1.6-2.6); Potassium 3.7 mmol/L (3.3-5.1); Sodium 143 mmol/L (135-145); Total Protein 7.4 g/dL (6.5-8.0)
--- NOTE | 2023-07-07 21:47 | ED_ITS ---
HPI - Skin/Abscess/Foreign Bdy General Chief complaint: Skin/Abscess/Foreign Body Stated complaint: rash on abdomen Time Seen by Provider: 07/07/23 21:29 Source: patient Mode of arrival: ambulatory Limitations: no limitations History of Present Illness HPI narrative: Patient with eczematous rash lower abdomen at the belt last 3 months gets worse after taking shower no history of eczema dermatitis does have itching no rash at any other place Related Data Home Medications ?Medication ?Instructions ?Recorded ?Confirmed acetaminophen 325 mg tablet 325 mg PO QID PRN 12/09/22 (Tylenol) omeprazole 10 mg capsule,delayed 10 mg PO DAILY PRN 03/06/23 03/06/23 release Previous Rx's ?Medication ?Instructions ?Recorded budesonide-formoterol HFA 160 2 puff inhalation BID 30 days 06/30/22 mcg-4.5 mcg/actuation aerosol #10.2 grams inhaler (Symbicort) benzonatate 200 mg capsule 200 mg PO BID PRN cough 30 days 12/09/22 #60 caps fluticasone propionate 50 2 spray intranasal DAILY 30 days 12/09/22 mcg/actuation nasal #15.8 mL spray,suspension bisacodyl 5 mg tablet,delayed 20 mg (4 x 5 mg) PO ONCE 1 day #4 03/06/23 release (Dulcolax (bisacodyl)) tabs polyethylene glycol 3350 17 238 g PO ONCE #238 grams 03/06/23 gram/dose oral powder (Miralax) betamethasone dipropionate 0.05 % 1 appl topical BID #45 grams 07/07/23 topical cream Allergies Allergy/AdvReac Type Severity Reaction Status Date / Time No Known Allergies Allergy Unknown Verified 07/07/23 18:37 [No Known Allergies*] Review of Systems 2 Review of Systems: Yes all other systems are reviewed and are negative PMFSH Past Medical History Medical History Chronic rhinitis Chronic cough Pleuritic chest pain Pulmonary nodules Social History Social History Alcohol intake: never Patient Tobacco Use Status: Never used Tobacco Advance Directives: No Advance Directives Information Provided: No Current occupational status: unemployed Physical Exam 2 Vital Signs: Vital Signs: Last Vital Signs Temp 98.6 F 07/07/23 18:36 Pulse 55 07/07/23 18:36 Resp 16 07/07/23 18:36 BP 131/82 07/07/23 18:36 Pulse Ox 96 07/07/23 18:36 O2 Del Method Room Air 07/07/23 18:36 BMI result Body Mass Index 23.9 Skin: Full body images: 1. Eczematous rash with excoriation no signs of infection Medical Decision Making Medical Decision Making MDM Narrative: Patient clinically with eczematous rash/dermatitis give betamethasone cream to apply locally twice daily Lab Data 07/07/23 18:58 07/07/23 18:58 Labs: Lab Results 07/07/23 Range/Units 18:58 WBC 4.9 (4.8-10.8) X10*3/uL RBC 4.41 L (4.60-5.80) X10*6/uL Hgb 13.8 L (14.0-18.0) g/dl Hct 38.1 L (42.0-52.0) % MCV 86.4 (80.0-98.0) fL MCH 31.3 (27.0-33.0) pg MCHC 36.2 H (31.0-36.0) g/dl RDW 11.9 (11.0-16.0) % Plt Count 154 L (160-400) X10*3/uL MPV 10.4 (9.4-12.4) fL Immature Gran % (Auto) 0.2 (0.0-0.4) % Neut % (Auto) 56.2 (45-73) % Lymph % (Auto) 25.9 (20-40) % [place] % (Auto) 11.4 H (2-11) % Eos % (Auto) 5.7 H (0-4) % Baso % (Auto) 0.6 (0-2) % Lymph # (Auto) 1.3 (1.2-4.9) X10*3/uL [place] # (Auto) 0.6 (0.1-1.2) X10*3/uL Eos # (Auto) 0.3 (0.0-0.4) X10*3/uL Baso # (Auto) 0.0 (0.0-0.2) X10*3/uL Abs Immat Gran (auto) 0.01 (0.00-0.03) X10*3/uL Absolute Neuts (auto) 2.8 (2.0-8.3) x10*3/uL Absolute Nucleated RBC 0.000 (0.0-0.012) X10*3/uL Nucleated RBC % (auto) 0.0 (0.0-0.2) /100WBC Sodium 143 (135-145) mmol/L Potassium 3.7 (3.3-5.1) mmol/L Chloride 109 H (96-108) mmol/L Carbon Dioxide 24 (22-29) mmol/L Anion Gap 14 (12-20) BUN 19 H (9-16) mg/dL Creatinine 0.84 (0.5-1.4) mg/dL Estim Creat Clear Calc 83.3 Estimated GFR > 60 Random Glucose 92 (60-115) mg/dL Calcium 9.6 (8.4-10.2) mg/dL Magnesium 1.8 (1.6-2.6) mg/dL Total Bilirubin 0.5 (0.0-1.0) mg/dL AST 25 (5-37) U/L ALT 27 (0-40) U/L Alkaline Phosphatase 67 (39-117) U/L Total Protein 7.4 (6.5-8.0) g/dL Albumin 4.0 (3.5-5.0) g/dL Lipase 31 (8-78) U/L Discharge Plan Discharge Clinical Impression: Dermatitis Patient Disposition: Home, Self-Care Instructions: Dermatitis (ED) Additional Instructions: Apply cortisone cream as advised twice daily until heals completely Prescriptions: New betamethasone dipropionate 0.05 % cream 1 appl topical BID Qty: 45 0RF Rx Instructions: Apply on the affected area twice daily until heals No Action budesonide-formoterol [Symbicort] 160-4.5 mcg/actuation HFA aerosol inhaler 2 puff inhalation BID 30 Days Qty: 10.2 11RF acetaminophen [Tylenol] 325 mg tablet 325 mg PO QID PRN fluticasone propionate 50 mcg/actuation spray,suspension 2 spray intranasal DAILY 30 Days Qty: 15.8 11RF benzonatate 200 mg capsule 200 mg PO BID PRN (Reason: cough) 30 Days Qty: 60 6RF omeprazole 10 mg capsule,delayed release(DR/EC) 10 mg PO DAILY PRN bisacodyl [Dulcolax (bisacodyl)] 5 mg tablet,delayed release (DR/EC) 20 mg PO ONCE 1 Days Qty: 4 0RF Rx Instructions: take 4 tabs at noon the day before your colonoscopy polyethylene glycol 3350 [Miralax] 17 gram/dose powder 238 g PO ONCE Qty: 238 0RF Rx Instructions: As directed by gastroenterology department at [facility] Print Language: Luxembourgish
[2023-07-07 21:51] VITALS: BP 133/80; PULSE 57; RESP 16; TEMP 36.9; O2SAT 97
[2023-07-07 22:01] VITALS: BP 133/80; PULSE 57; RESP 18; TEMP 36.9; O2SAT 97
== END 2023-07-07 22:04 | disposition home or self-care (01) ==
PROVIDERS: Physician Assistant Medical; Emergency Provider Internal Medicine; PCP Family Medicine
DX: L30.9 Dermatitis, unspecified (principal)
CPT/HCPCS: 36415; 80053; 83690; 83735; 85025; 99282; 99283